=== PATIENT | male | born 1955 | race Caucasian/White ===

== ENCOUNTER 2021-05-09 13:25 | Inpatient (IN) | payer OTHER ==
[2021-05-06 09:34] LABS: BASOPHILS # (AUTO) 0.1 (0.0-0.1); BASOPHILS % 1.6 % (0.0-1.0); EOSINOPHILS # (AUTO) 0.1 (0.0-0.4); EOSINOPHILS % 2.1 % (0.0-6.0); HEMOGLOBIN 10.8 g/dL (14.0-18.0); LYMPHOCYTES # (AUTO) 1.8 (1.0-3.2); LYMPHOCYTES % 31.3 % (18.0-39.1); MEAN CORPUSCULAR HEMOGLOBIN 29.1 pg (28-32); MEAN CORPUSCULAR HGB CONC 30.9 g/dL (31-35); MEAN CORPUSCULAR VOLUME 94.3 fL (81-99); MONOCYTES # (AUTO) 0.8 (0.2-0.8); MONOCYTES % 13.7 % (4.4-11.3); NEUTROPHILS % 51.1 % (38.7-80.0); PLATELET COUNT 365 x10e3/uL (140-360); RED BLOOD COUNT 3.71 x10e6/uL (4.3-5.7)
[2021-05-06 09:59] LABS: ALBUMIN 3.5 g/dL (3.5-5.0); ALBUMIN/GLOBULIN RATIO 0.9 (0.8-2.0); ANION GAP 13.7 mmol/L (8-16); CALCIUM 9.5 mg/dL (8.4-10.2); CREATININE, SERUM 1.79 mg/dL (0.72-1.25); POTASSIUM 4.7 mmol/L (3.5-5.1)
[~2021-05-09] VITALS: Ht 182.9 cm; Wt 65.8 kg
[~2021-05-09 13:25] MED LIST: AMLODIPINE BESY10 MG PO; CEFUROXIME250 MG PO; CLINDAMYCIN 300MG 50 ML IV ONE; DOCUSATE SODIU100 MG PO; LEVOFLOXACIN 500MG/D5W 100ML 100 ML IV ONE; METOPROLOL SUCC50 MG PO
[2021-05-09] MEDS ORDERED: HYDROMORPHONE 1MG/1ML INJ ONE (14:14)
[2021-05-09] MEDS ORDERED: ACETAMINOPHEN 1000 MG/100 ML IV PRN (15:45)
[2021-05-09] MEDS ORDERED: NALOXONE HCL INJ 0.4 MG/ML AMP IV PRN (15:45)
[2021-05-09] MEDS ORDERED: ONDANSETRON HCL INJ 2MG/ML 2ML 2 MG/ML VIAL IV PRN (15:45)
[2021-05-09] MEDS ORDERED: DIPHENHYDRAMINE HCL INJ 50 MG/ML VIAL IM PRN (15:45)
[2021-05-09] MEDS: MORPHINE SULFATE 1 MG/ML 30ML PCA IV PRN ×2 (16:15→22:36)
[2021-05-09 16:44] LABS: BASOPHILS % 0.4 % (0.0-1.0); EOSINOPHILS % 0.1 % (0.0-6.0); HEMATOCRIT 32.8 % (38.2-49.6); HEMOGLOBIN 10.1 g/dL (14.0-18.0); LYMPHOCYTES # (AUTO) 0.7 (1.0-3.2); LYMPHOCYTES % 7.5 % (18.0-39.1); MEAN CORPUSCULAR HGB CONC 30.8 g/dL (31-35); MEAN CORPUSCULAR VOLUME 94.3 fL (81-99); MONOCYTES # (AUTO) 0.3 (0.2-0.8); NEUTROPHILS # (AUTO) 8.5 (2.1-6.9); NEUTROPHILS % 88.7 % (38.7-80.0); PLATELET COUNT 310 x10e3/uL (140-360); RED BLOOD COUNT 3.48 x10e6/uL (4.3-5.7); RED CELL DISTRIBUTION WIDTH 14.8 % (11.7-14.4)
[2021-05-09 17:02] LABS: ANION GAP 14.2 mmol/L (8-16); CALCIUM 8.7 mg/dL (8.4-10.2); CREATININE, SERUM 1.83 mg/dL (0.72-1.25); POTASSIUM 4.2 mmol/L (3.5-5.1)
[2021-05-09] MEDS ORDERED: ROCURONIUM BROMIDE 10 MG/ML 5ML VIAL IV ONE (17:08)
[2021-05-09] MEDS ORDERED: PHENYLEPHRINE HCL 1% 10 MG/ML VIAL ONE (17:08)
[2021-05-09] MEDS ORDERED: PROPOFOL IV EMULSION 10 MG/ML 20 ML VIAL ONE (17:08)
[2021-05-09] MEDS ORDERED: LIDOCAINE HCL 2% LOCAL INJ 5 ML SDV VIAL INJ ONE (17:08)
[2021-05-09] MEDS ORDERED: SEVOFLURANE INHAL SOLN 250 ML PEN BTL ONE (17:08)
[2021-05-09] MEDS ORDERED: NEOSTIGMINE 1 MG/ML 10ML VIAL ONE (17:08)
[2021-05-09] MEDS ORDERED: POVIDONE IODINE 0.05% 0.05 % ML PO ONE (17:08)
[2021-05-09] MEDS ORDERED: ONDANSETRON HCL INJ 2MG/ML 2ML 2 MG/ML VIAL ONE (17:08)
[2021-05-09] MEDS ORDERED: DEXAMETHASONE SOD PHOS INJ 4 MG/ML SDV ONE (17:08)
[2021-05-09] MEDS ORDERED: ATROPINE SULFATE 1 MG/ML VIAL ONE (17:08)
[2021-05-09 17:18] VITALS: BP 145/89
[2021-05-09] MEDS ORDERED: FENTANYL CITRATE/PF 100MCG/2 ML INJ ONE (17:28)
[2021-05-09] MEDS ORDERED: MIDAZOLAM HCL 2 MG/2 ML VIAL ONE (17:28)
[2021-05-09 17:32] VITALS: BP 145/89
[2021-05-09] MEDS: D5.45%NS/KCL 20MEQ 1,000 ML IV SCH (17:48)
[2021-05-09] MEDS: SODIUM CHLORIDE 0.9% 250ML IRRIG IR SCH ×2 (17:48→22:36)
[2021-05-09 20:00] VITALS: BP_SYST 118; BP_SYST 145; BP_DIAS 73; BP_DIAS 89
[2021-05-09] MEDS: CLINDAMYCIN 300MG 50 ML IV SCH (22:58)
[2021-05-10] VITALS (9 sets, daily range): BP systolic 109–153; BP diastolic 64–75
[2021-05-10] MEDS: SODIUM CHLORIDE 0.9% 250ML IRRIG IR SCH ×6 (02:00→21:31)
[2021-05-10 05:12] LABS: BASOPHILS % 0.1 % (0.0-1.0); HEMATOCRIT 32.2 % (38.2-49.6); HEMOGLOBIN 10.2 g/dL (14.0-18.0); LYMPHOCYTES # (AUTO) 0.9 (1.0-3.2); LYMPHOCYTES % 8.8 % (18.0-39.1); MEAN CORPUSCULAR HEMOGLOBIN 29.5 pg (28-32); MEAN CORPUSCULAR HGB CONC 31.7 g/dL (31-35); MEAN CORPUSCULAR VOLUME 93.1 fL (81-99); MONOCYTES % 9.6 % (4.4-11.3); NEUTROPHILS # (AUTO) 8.4 (2.1-6.9); NEUTROPHILS % 81.1 % (38.7-80.0); PLATELET COUNT 340 x10e3/uL (140-360); RED BLOOD COUNT 3.46 x10e6/uL (4.3-5.7); RED CELL DISTRIBUTION WIDTH 14.6 % (11.7-14.4)
[2021-05-10] MEDS: D5.45%NS/KCL 20MEQ 1,000 ML IV SCH (05:35)
[2021-05-10 05:53] LABS: ANION GAP 11.8 mmol/L (8-16); CALCIUM 9.1 mg/dL (8.4-10.2); CREATININE, SERUM 1.65 mg/dL (0.72-1.25); POTASSIUM 4.8 mmol/L (3.5-5.1)
[2021-05-10] MEDS ORDERED: MAGNESIUM SULFATE 2GM/50ML IV NR (09:00)
[2021-05-10] MEDS: DEXTROSE 5%/0.9% SOD CHL 1,000 ML IV SCH ×2 (09:43→21:04)
[2021-05-10] MEDS: MORPHINE SULFATE 1 MG/ML 30ML PCA IV PRN ×2 (09:55→19:19)
[2021-05-10] MEDS: LEVOFLOXACIN 250MG/D5W 50ML 50 ML IV SCH (12:02)
[2021-05-10] MEDS: CLINDAMYCIN 300MG 50 ML IV SCH ×2 (14:15→22:22)
[2021-05-11] VITALS (7 sets, daily range): BP systolic 112–158; BP diastolic 66–90
[2021-05-11] MEDS: SODIUM CHLORIDE 0.9% 250ML IRRIG IR SCH ×6 (02:45→19:24)
[2021-05-11 04:58] LABS: BASOPHILS % 0.4 % (0.0-1.0); EOSINOPHILS % 0.2 % (0.0-6.0); HEMATOCRIT 34.5 % (38.2-49.6); HEMOGLOBIN 10.6 g/dL (14.0-18.0); LYMPHOCYTES # (AUTO) 0.9 (1.0-3.2); LYMPHOCYTES % 11.2 % (18.0-39.1); MEAN CORPUSCULAR HGB CONC 30.7 g/dL (31-35); MEAN CORPUSCULAR VOLUME 94.3 fL (81-99); MONOCYTES # (AUTO) 1.2 (0.2-0.8); NEUTROPHILS # (AUTO) 6.2 (2.1-6.9); NEUTROPHILS % 73.7 % (38.7-80.0); PLATELET COUNT 316 x10e3/uL (140-360); RED BLOOD COUNT 3.66 x10e6/uL (4.3-5.7); RED CELL DISTRIBUTION WIDTH 14.8 % (11.7-14.4)
[2021-05-11] MEDS: DEXTROSE 5%/0.9% SOD CHL 1,000 ML IV SCH ×2 (05:16→18:13)
[2021-05-11 05:28] LABS: ANION GAP 12.7 mmol/L (8-16); CALCIUM 8.5 mg/dL (8.4-10.2); CREATININE, SERUM 1.78 mg/dL (0.72-1.25); POTASSIUM 4.7 mmol/L (3.5-5.1)
[2021-05-11 06:02] LABS: MAGNESIUM 1.9 MG/DL (1.3-2.1)
[2021-05-11] MEDS: LEVOFLOXACIN 250MG/D5W 50ML 50 ML IV SCH (09:18)
[2021-05-11] MEDS ORDERED: ACETAMINOPHEN 1000 MG/100 ML IV PRN (10:15)
[2021-05-11] MEDS ORDERED: MORPHINE SULFATE 1 MG/ML 30ML PCA IV PRN (10:15)
[2021-05-11] MEDS ORDERED: IOPAMIDOL 300MG/ML 100 ML INFUS..BTL IV ONE (11:00)
[2021-05-11] MEDS: CLINDAMYCIN 300MG 50 ML IV SCH ×2 (11:23→23:50)
[2021-05-12] VITALS (9 sets, daily range): BP systolic 103–138; BP diastolic 63–89
[2021-05-12] MEDS: SODIUM CHLORIDE 0.9% 250ML IRRIG IR SCH (01:07)
[2021-05-12] MEDS: DEXTROSE 5%/0.9% SOD CHL 1,000 ML IV SCH ×2 (01:10→12:36)
[2021-05-12 06:13] LABS: BASOPHILS % 0.4 % (0.0-1.0); EOSINOPHILS # (AUTO) 0.1 (0.0-0.4); HEMATOCRIT 35.4 % (38.2-49.6); HEMOGLOBIN 10.7 g/dL (14.0-18.0); LYMPHOCYTES # (AUTO) 1.1 (1.0-3.2); MEAN CORPUSCULAR HEMOGLOBIN 29.2 pg (28-32); MEAN CORPUSCULAR HGB CONC 30.2 g/dL (31-35); MEAN CORPUSCULAR VOLUME 96.7 fL (81-99); MONOCYTES # (AUTO) 1.5 (0.2-0.8); MONOCYTES % 18.1 % (4.4-11.3); NEUTROPHILS # (AUTO) 5.4 (2.1-6.9); NEUTROPHILS % 66.3 % (38.7-80.0); PLATELET COUNT 265 x10e3/uL (140-360); RED BLOOD COUNT 3.66 x10e6/uL (4.3-5.7); RED CELL DISTRIBUTION WIDTH 14.6 % (11.7-14.4)
[2021-05-12 07:04] LABS: ANION GAP 16.1 mmol/L (8-16); CALCIUM 9.3 mg/dL (8.4-10.2); CREATININE, SERUM 1.73 mg/dL (0.72-1.25); POTASSIUM 4.1 mmol/L (3.5-5.1)
[2021-05-12] MEDS ORDERED: ACETAMINOPHEN/CODEINE 300MG - 30MG TAB PO PRN (07:15)
[2021-05-12] MEDS ORDERED: BISACODYL 10 MG SUPP PR PRN (07:15)
[2021-05-12] MEDS ORDERED: ACETAMINOPHEN 1000 MG/100 ML IV PRN (07:15)
[2021-05-12] MEDS ORDERED: MORPHINE SULFATE 1 MG/ML 30ML PCA IV PRN (07:15)
[2021-05-12] MEDS ORDERED: BISACODYL 10 MG SUPP PR ONE (08:00)
[2021-05-12] MEDS: DOCUSATE SODIUM 100 MG CAP PO SCH ×2 (08:14→17:02)
[2021-05-12] MEDS: METOPROLOL TARTRATE 25 MG TAB PO SCH ×3 (09:32→20:40)
[2021-05-12] MEDS: LEVOFLOXACIN 250MG/D5W 50ML 50 ML IV SCH (09:33)
[2021-05-12] MEDS ORDERED: ONDANSETRON HCL 4 MG ORAL DISINTEGRATING TAB PO PRN (12:00)
[2021-05-12] MEDS: CLINDAMYCIN 300MG 50 ML IV SCH (12:36)
[2021-05-12] MEDS ORDERED: CLINDAMYCIN HCL 150 MG CAP PO SCH (21:00)
[2021-05-13] VITALS (8 sets, daily range): BP systolic 107–132; BP diastolic 64–81
[2021-05-13] MEDS: DEXTROSE 5%/0.9% SOD CHL 1,000 ML IV SCH (02:00)
[2021-05-13 04:56] LABS: BASOPHILS % 0.4 % (0.0-1.0); EOSINOPHILS # (AUTO) 0.2 (0.0-0.4); HEMATOCRIT 27.8 % (38.2-49.6); HEMOGLOBIN 8.9 g/dL (14.0-18.0); LYMPHOCYTES # (AUTO) 0.9 (1.0-3.2); LYMPHOCYTES % 18.2 % (18.0-39.1); MEAN CORPUSCULAR HEMOGLOBIN 29.3 pg (28-32); MEAN CORPUSCULAR VOLUME 91.4 fL (81-99); MONOCYTES # (AUTO) 0.7 (0.2-0.8); MONOCYTES % 14.4 % (4.4-11.3); NEUTROPHILS # (AUTO) 3.1 (2.1-6.9); NEUTROPHILS % 62.8 % (38.7-80.0); PLATELET COUNT 254 x10e3/uL (140-360); RED BLOOD COUNT 3.04 x10e6/uL (4.3-5.7); RED CELL DISTRIBUTION WIDTH 14.6 % (11.7-14.4)
[2021-05-13 05:18] LABS: ANION GAP 9.7 mmol/L (8-16); CALCIUM 8.3 mg/dL (8.4-10.2); CREATININE, SERUM 1.64 mg/dL (0.72-1.25); POTASSIUM 3.7 mmol/L (3.5-5.1)
[2021-05-13] MEDS: METOPROLOL TARTRATE 25 MG TAB PO SCH ×3 (05:42→21:32)
[2021-05-13] MEDS ORDERED: ONDANSETRON HCL INJ 2MG/ML 2ML 2 MG/ML VIAL IV PRN (09:00)
[2021-05-13] MEDS ORDERED: Morphine 4mg Syringe 4 MG/ML INJ IV PRN (09:00)
[2021-05-13] MEDS ORDERED: ACETAMINOPHEN 325 MG TAB PO PRN (09:00)
[2021-05-13] MEDS ORDERED: HYDROCODONE/APAP 7.5MG-325MG 1 EA TAB PO PRN (09:00)
[2021-05-13] MEDS: CEFUROXIME AXETIL 250 MG TAB PO SCH ×2 (10:05→16:58)
[2021-05-13] MEDS: DOCUSATE SODIUM 100 MG CAP PO SCH ×2 (10:05→16:44)
[2021-05-13] MEDS: PANTOPRAZOLE SOD 40 MG TABEC PO SCH (10:05)
[2021-05-14 00:04] VITALS: BP 141/72
[2021-05-14 02:13] VITALS: BP 141/72
[2021-05-14 04:00] VITALS: BP 139/91
[2021-05-14] MEDS: METOPROLOL TARTRATE 25 MG TAB PO SCH (05:54)
[2021-05-14] MEDS: PANTOPRAZOLE SOD 40 MG TABEC PO SCH (07:32)
[2021-05-14 07:53] VITALS: BP 152/92
[2021-05-14 07:55] VITALS: BP 152/92
[2021-05-14] MEDS: CEFUROXIME AXETIL 250 MG TAB PO SCH (09:51)
[2021-05-14] MEDS: DOCUSATE SODIUM 100 MG CAP PO SCH (09:51)
[2021-05-14] MEDS ORDERED: ONDANSETRON ODT4 MG PO (09:56)
[2021-05-14] MEDS ORDERED: FEROSUL325 MG PO (09:56)
== END 2021-05-14 11:30 | disposition home or self-care (01) | DRG 657 ==
LOC: OR 13:25 → PACU V 15:40 → MED/SURG 17:04
PROVIDERS: ADMIT Internal Medicine; ATTEND Internal Medicine
PROC: 0T780DZ Dilation of Bilateral Ureters with Intraluminal Device, Open Approach (ICD-10-PCS; 2021-05-09)
PROC: 0T1807C Bypass Bilateral Ureters to Ileocutaneous with Autologous Tissue Substitute, Open Approach (ICD-10-PCS; principal; 2021-05-09 13:00)
PROC: 0TP5X0Z Removal of Drainage Device from Kidney, External Approach (ICD-10-PCS; 2021-05-11)
DX: D09.0 Carcinoma in situ of bladder (principal); N13.1 Hydronephrosis with ureteral stricture, not elsewhere classified; C79.9 Secondary malignant neoplasm of unspecified site; I12.9 Hypertensive chronic kidney disease with stage 1 through stage 4 chronic kidney disease, or unspecified chronic kidney disease; N18.30 Chronic kidney disease, stage 3 unspecified; D64.9 Anemia, unspecified; Z20.822 Contact with and (suspected) exposure to COVID-19; Z93.6 Other artificial openings of urinary tract status; R00.0 Tachycardia, unspecified
CPT/HCPCS: 36415; 71045; 71046; 74018; 74425; 74470; 80048; 80053; 83735; 84100; 85025; 86850; 86900; 88304; 88305; 93005; 94799; 97139; J0461; J1100; J1170; J1200; J1956; J2001; J2250; J2270; J2370; J2405; J2710; J3010; J3475; J7042; Q9967; U0002

== ENCOUNTER → 2021-07-08 | Outpatient (CLI) | payer OTHER ==
[~2021-07-08] MED LIST changes: -CLINDAMYCIN 300MG 50 ML IV ONE; +FEROSUL325 MG PO; +IOPAMIDOL 300MG/ML 100 ML INFUS..BTL IV ONE; -LEVOFLOXACIN 500MG/D5W 100ML 100 ML IV ONE; +ONDANSETRON ODT4 MG PO
== END ==
LOC: DX 12:49
PROVIDERS: ATTEND Urology
DX: N18.9 Chronic kidney disease, unspecified (principal)
CPT/HCPCS: 74425; Q9967